=== PATIENT | female | born 2000 | race African-American/Black ===

== ENCOUNTER 2020-07-06 00:10 | Emergency (ER) | payer SELFPAY ==
--- NOTE | 2020-07-06 08:21 | RAD ---
Exam: Left knee 4 views: HISTORY: Injury from a fall with pain COMPARISON: None FINDINGS: No evidence for fracture, dislocation, or other significant acute osseous abnormality. IMPRESSION: No significant acute process.
== END 2020-07-06 01:02 | disposition home or self-care (01) ==
LOC: ERS 00:10
DX: S86.912A Strain of unspecified muscle(s) and tendon(s) at lower leg level, left leg, initial encounter (principal); W19.XXXA Unspecified fall, initial encounter

== ENCOUNTER 2020-10-22 09:16 | Outpatient (CLI) | payer MEDICAID | END 2020-10-22 09:17 | disposition home or self-care (01) | LOC: BICULT 09:16 | PROVIDERS: ATTEND Nurse Practitioner Women's Health | DX: Z30.46 Encounter for surveillance of implantable subdermal contraceptive (principal) | CPT/HCPCS: 76999 ==

== ENCOUNTER 2024-04-02 12:36 | Emergency (ER) | payer SELFPAY ==
[2024-04-02 13:04] LABS: Bacteria/HPF None Seen HPF (None Seen); Bilirubin Negative (Negative); Blood, Urine Trace (Negative); CAUTI Indications for Culture Dysuria,urgency,freq; Clarity Clear (Clear); Glucose, Urine (Dipstick) Normal (Negative); Ketone, Urine Negative (Negative); Leukocyte Negative Leu/uL (Negative); Nitrite Negative (Negative); Protein, Urine (Dipstick) Negative (Neg-Trace); RBC/HPF 0-3 HPF (0-3); Specific Gravity, Urine 1.016 (1.002-1.036); Squamous Epithelial 0-3 HPF (0-3); Urobilinogen Normal mg/dL (Less than 2); WBC/HPF 0-3 HPF (0-3)
[2024-04-02 13:05] LABS: Pregnancy Test - Urine (BHCG) Negative (Negative); Pregu Control Background? CLEAR/WHITE (CLR/WHITE); Pregu Control Bar Appear? YES (CONTROL BAR); Specific Gravity 1.016 (1.002-1.036); Urine Culture Reflex No No
== END 2024-04-02 13:18 | disposition home or self-care (01) ==
LOC: ERS 12:36
DX: M54.50 Low back pain, unspecified (principal)
CPT/HCPCS: 81001; 81025; 99283